=== PATIENT | male | born 1990 | race Caucasian/White ===

== ENCOUNTER 2019-02-10 15:30 | Emergency (ER) | payer OTHER ==
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
[2019-02-10 16:57] VITALS: BP 129/92
[2019-02-10 17:28] LABS: Hepatitis B Surface Antigen Nonreactive (Nonreactive)
[2019-02-10 17:38] LABS: HIV 4th Generation Nonreactive (Nonreactive)
[2019-02-10 17:45] LABS: Hepatitis B Surface Ab Not Immune (Immune); Hepatitis C Antibody Negative (Negative)
== END 2019-02-10 16:54 | disposition home or self-care (01) ==
LOC: ED 15:30
DX: Z77.21 Contact with and (suspected) exposure to potentially hazardous body fluids (principal); Y35.891A Legal intervention involving other specified means, law enforcement official injured, initial encounter; Y92.89 Other specified places as the place of occurrence of the external cause; Y99.0 Civilian activity done for income or pay
CPT/HCPCS: 36415; 86706; 86803; 87340; 87389; 99282